=== PATIENT | female | born 1985 | race Caucasian/White ===

== ENCOUNTER 2018-02-15 14:45 | Inpatient (IN) | payer OTHER ==
[~2018-02-15] VITALS: Ht 170.2 cm; Wt 80.3 kg
[2018-02-28] MEDS ORDERED: PRENATAL TABLE1 EAC3 PO (08:34)
== END 2018-03-02 14:59 | disposition home or self-care, planned readmission (81) | DRG 775 ==
LOC: OB/GYN 02-28 07:28 → LDR 02-28 07:28 → OB/GYN 02-28 20:10
PROC: 0KQM0ZZ Repair Perineum Muscle, Open Approach (ICD-10-PCS; principal; 2018-02-28)
PROC: 10E0XZZ Delivery of Products of Conception, External Approach (ICD-10-PCS; 2018-02-28)
PROC: 4A1HXCZ Monitoring of Products of Conception, Cardiac Rate, External Approach (ICD-10-PCS; 2018-02-28)
PROC: 3E033VJ Introduction of Other Hormone into Peripheral Vein, Percutaneous Approach (ICD-10-PCS; 2018-02-28)
DX: O70.1 Second degree perineal laceration during delivery (principal); Z37.0 Single live birth; O42.02 Full-term premature rupture of membranes, onset of labor within 24 hours of rupture; Z3A.39 39 weeks gestation of pregnancy; Z22.330 Carrier of Group B streptococcus